=== PATIENT | male | born 1955 | race Caucasian/White ===

== ENCOUNTER 2017-02-05 04:46 | Inpatient (IN) | payer MEDICARE ==
[~2017-02-05] VITALS: Ht 180.3 cm; Wt 54.8 kg
[2017-02-05 04:59] VITALS: BP 129/63; PULSE 66; RESP 16; TEMP 98.2; O2SAT 98
[2017-02-05] MEDS ORDERED: cholesterol (05:12)
[2017-02-05] MEDS ORDERED: ISOS60TA PO (05:12)
[2017-02-05] MEDS ORDERED: PLAV75TA29 PO (05:12)
[2017-02-05] MEDS ORDERED: ALPR1TAB3 PO (05:12)
[2017-02-05] MEDS ORDERED: OXYC1TAB36 PO (05:12)
[2017-02-05] MEDS ORDERED: ASPI325T PO (05:12)
[2017-02-05] MEDS ORDERED: METO50TA PO (05:12)
[2017-02-05 05:24] VITALS: O2SAT 98
--- NOTE | 2017-02-05 05:26 | PD ---
HPI Chief Complaint: Psychiatric Symptoms Time Seen by Provider: 05:13 Travel History International Travel<30 days: No Contact w/Intl Traveler<30days: No Traveled to known affect area: No History of Present Illness HPI Patient is a 61-year-old male who is brought to the emergency room by [facility] law enforcement officers under [place] act. As per police officers, patient suffers from anxiety and was found in his residence having hallucinations stating that there were several people in his sister's bedroom. Please officers made contact with him and he was in the hallway holding a sledgehammer. Patient had scripts filled on January 15, 2017 with 120 tablets of Xanax and 120 tabs of oxycodone which both bottles are empty. Patient reports that he was at her sister's home, reports that he heard voices from his systems room, which that he did become concerned and tried to investigate this. Patient reports that before he knew it, officers were at the home. Patient reports that he is not suicidal or homicidal, patient reports that the people at the home stole his medications. Patient Adamantly denies taking any of his medications and overdose. Patient also denies holding a sledgehammer [facility] Past Medical History Anxiety: Yes Cardiac Catheterization: Yes Diminished Hearing: No Myocardial Infarction: Yes Tetanus Vaccination: > 5 Years Influenza Vaccination: Yes Past Surgical History Coronary Stent: Yes Other Surgery: Yes (SPINAL STIMULATOR: REMOVAL ) Social History Alcohol Use: No Tobacco Use: Yes (8-10 ) Substance Use: No Allergies-Medications (Allergen,Severity, Reaction): Coded Allergies: No Known Allergies (Unverified , 02/05/17) Reported Meds & Prescriptions Reported Meds & Active Scripts Active Reported Metoprolol Tartrate 50 Mg Tab 50 Mg PO DAILY [cholesterol ] Unknown Strength Unknown Dose Aspirin 325 Mg Tab 325 Mg PO DAILY Isosorbide Mononitrate ER (Isosorbide Mononitrate) 60 Mg Tab 60 Mg PO DAILY Oxycodone-Acetaminophen 10-325 mg Tab 1 Tab PO Q6H PRN Alprazolam 1 Mg Tab 1 Mg PO Q4-6H PRN Plavix (Clopidogrel Bisulfate) Unknown Strength Tab Unknown Dose PO DAILY Review of Systems General / Constitutional: No: Fever Eyes: No: Visual changes HENT: No: Headaches Cardiovascular: No: Chest Pain or Discomfort Respiratory: No: Shortness of Breath Gastrointestinal: No: Abdominal Pain Genitourinary: No: Dysuria Musculoskeletal: No: Pain Skin: No Rash Neurologic: No: Weakness Psychiatric: No: Depression Endocrine: No: Polydipsia Hematologic/Lymphatic: No: Easy Bruising Physical Exam Narrative GENERAL: No acute distress, nontoxic SKIN: Focused skin assessment warm/dry. HEAD: Atraumatic. Normocephalic. EYES: Pupils equal and round. No scleral icterus. No injection or drainage. ENT: No nasal bleeding or discharge. Mucous membranes pink and moist. NECK: Trachea midline. No JVD. CARDIOVASCULAR: Regular rate and rhythm. No murmur appreciated. RESPIRATORY: No accessory muscle use. Clear to auscultation. Breath sounds equal bilaterally. GASTROINTESTINAL: Abdomen soft, non-tender, nondistended. Hepatic and splenic margins not palpable. MUSCULOSKELETAL: No obvious deformities. No clubbing. No cyanosis. No edema. NEUROLOGICAL: Awake and alert. No obvious cranial nerve deficits. Motor grossly within normal limits. Normal speech. PSYCHIATRIC: Appropriate mood and affect; insight and judgment normal. Data Data Last Documented VS Vital Signs Date Time Temp Pulse Resp B/P Pulse Ox O2 Delivery O2 Flow Rate FiO2 02/05/17 12:34 98.3 52 16 119/55 99 Room Air Orders Complete Blood Count With Diff (02/05/17 05:05) Comprehensive Metabolic Panel (02/05/17 05:05) Psych Screen (02/05/17 05:05) Drug Screen, Random Urine (02/05/17 05:05) Alcohol (Ethanol) (02/05/17 05:05) Salicylates (Aspirin) (02/05/17 05:05) Tylenol (Acetaminophen) (02/05/17 05:05) Ecg Monitoring (02/05/17 05:19) Oximetry (02/05/17 05:19) Salicylates (Aspirin) (02/05/17 08:20) Tylenol (Acetaminophen) (02/05/17 08:20) Naproxen (Naprosyn) (02/05/17 07:45) Diet Regular Basic (02/05/17 Dinner) Labs Laboratory Tests Test 02/05/17 02/05/17 05:20 08:20 White Blood Count 11.4 TH/MM3 Red Blood Count 4.15 MIL/MM3 Hemoglobin 12.6 GM/DL Hematocrit 37.4 % Mean Corpuscular Volume 90.0 FL Mean Corpuscular Hemoglobin 30.4 PG Mean Corpuscular Hemoglobin 33.7 % Concent Red Cell Distribution Width 13.2 % Platelet Count 255 TH/MM3 Mean Platelet Volume 8.3 FL Neutrophils (%) (Auto) 64.6 % Lymphocytes (%) (Auto) 25.0 % Monocytes (%) (Auto) 9.5 % Eosinophils (%) (Auto) 0.3 % Basophils (%) (Auto) 0.6 % Neutrophils # (Auto) 7.4 TH/MM3 Lymphocytes # (Auto) 2.9 TH/MM3 Monocytes # (Auto) 1.1 TH/MM3 Eosinophils # (Auto) 0.0 TH/MM3 Basophils # (Auto) 0.1 TH/MM3 CBC Comment DIFF FINAL Differential Comment Sodium Level 144 MEQ/L Potassium Level 3.4 MEQ/L Chloride Level 108 MEQ/L Carbon Dioxide Level 25.9 MEQ/L Anion Gap 10 MEQ/L Blood Urea Nitrogen 23 MG/DL Creatinine 0.82 MG/DL Estimat Glomerular Filtration 95 ML/MIN Rate Random Glucose 97 MG/DL Calcium Level 9.4 MG/DL Total Bilirubin 0.6 MG/DL Aspartate Amino Transf 21 U/L (AST/SGOT) Alanine Aminotransferase 31 U/L (ALT/SGPT) Alkaline Phosphatase 67 U/L Total Protein 7.3 GM/DL Albumin 4.2 GM/DL Salicylates Level 5.0 MG/DL 4.5 MG/DL Acetaminophen Level LESS THAN 2.0 LESS THAN 2.0 MCG/ML MCG/ML Ethyl Alcohol Level LESS THAN 3 MG/DL MDM Medical Decision Making Medical Screen Exam Complete: Yes Emergency Medical Condition: Yes Interpretation(s) Vital Signs Date Time Temp Pulse Resp B/P Pulse Ox O2 Delivery O2 Flow Rate FiO2 02/05/17 04:59 98.2 66 16 129/63 98 Differential Diagnosis Possible drug ingestion, electrolyte abnormality, possible drug overdose Narrative Course Patient is a 61-year-old male who presents to emergency room under [place] by police officers. As per police officers, patient was having hallucinations and had a sledgehammer in his hand. Patient was also found with 2 missing bottles of Xanax as well as oxycodone which patient adamantly denies ingesting. Patient was placed on a media monitor as well as a continuous pulse oximeter upon arrival to the emergency room. Labs including tox screens, acetaminophen and aspirin level ordered. Plan to monitor patient. Once medically cleared, will have patient seen by psychiatric screeners. patient signed out to oncoming physician at change of shift Yasmin Moore DO February 05, 2017 05:26
[2017-02-05 05:47] LABS: AUTOMATED NEUTROPHIL # 7.4 TH/MM3 (1.8-7.7); BASOPHIL # 0.1 TH/MM3 (0-0.2); BASOPHIL % 0.6 % (0.0-2.0); EOSINOPHIL % 0.3 % (0.0-4.0); HEMATOCRIT 37.4 % (39.0-51.0); HEMO FLAGS DIFF FINAL; LYMPHOCYTE # 2.9 TH/MM3 (1.0-4.8); MEAN CORPUSCULAR HEMOGLOBIN 30.4 PG (27.0-34.0); MEAN CORPUSCULAR HGB CONC 33.7 % (32.0-36.0); MONO % 9.5 % (0.0-8.0); NEUT % 64.6 % (16.0-70.0); PLATELET COUNT 255 TH/MM3 (150-450); RED BLOOD COUNT 4.15 MIL/MM3 (4.50-5.90); RED CELL DISTRIBUTION WIDTH 13.2 % (11.6-17.2); WHITE BLOOD COUNT 11.4 TH/MM3 (4.0-11.0)
[2017-02-05 05:48] LABS: ACETAMINOPHEN LESS THAN 2.0 MCG/ML (10.0-30.0); ALT (GPT) 31 U/L (12-78); ANION GAP 10 MEQ/L (5-15); AST (GOT) 21 U/L (15-37); BICARBONATE 25.9 MEQ/L (21.0-32.0); BLOOD UREA NITROGEN 23 MG/DL (7-18); CHLORIDE 108 MEQ/L (98-107); GLOMERULAR FILTRATION RATE 95 ML/MIN (>89); POTASSIUM 3.4 MEQ/L (3.5-5.1); SODIUM (NA) 144 MEQ/L (136-145)
[2017-02-05 05:50] LABS: ALKALINE PHOSPHATASE 67 U/L (45-117); TOTAL BILIRUBIN ADULT 0.6 MG/DL (0.2-1.0)
[2017-02-05 07:30] VITALS: BP 109/62; PULSE 57; RESP 18; O2SAT 98
[2017-02-05] MEDS ORDERED: NAPROXEN 500 MG TAB PO ONE (07:45)
[2017-02-05 10:30] VITALS: BP 104/58; PULSE 55; RESP 18; O2SAT 98
[2017-02-05 12:34] VITALS: BP 119/55; PULSE 52; RESP 16; TEMP 98.3; O2SAT 99
[2017-02-05 19:03] LABS: AMPHETAMINE, URINE NEG (NEG); BARBITURATES, URINE NEG (NEG); COCAINE, URINE NEG (NEG)
[2017-02-05 22:09] VITALS: BP 119/60; PULSE 60; RESP 18; O2SAT 98
[2017-02-06 02:17] VITALS: BP 147/68; PULSE 63; RESP 18; O2SAT 98
[2017-02-06 06:12] VITALS: BP 130/54; PULSE 63; RESP 16; TEMP 97.1; O2SAT 98
[2017-02-06] MEDS ORDERED: LORazepam 2 MG/ML VIAL IM ONE (09:00)
--- NOTE | 2017-02-06 09:00 | PD ---
Physical Exam Date Seen by Provider: February 06, 2017 Time Seen by Provider: 08:50 Narrative While in J pod examining another patient, I witnessed this patient trying to punch staff in an aggressive manner. Patient became very violent and required multiple staff members to restrain him. He is very anxious and thinks he is in mcc. He is a harm to himself and others. Data Data Last Documented VS Vital Signs Date Time Temp Pulse Resp B/P Pulse Ox O2 Delivery O2 Flow Rate FiO2 02/06/17 12:30 80 20 121/66 Room Air 02/06/17 09:07 98.6 100 Orders Complete Blood Count With Diff (02/05/17 05:05) Comprehensive Metabolic Panel (02/05/17 05:05) Psych Screen (02/05/17 05:05) Drug Screen, Random Urine (02/05/17 05:05) Alcohol (Ethanol) (02/05/17 05:05) Salicylates (Aspirin) (02/05/17 05:05) Tylenol (Acetaminophen) (02/05/17 05:05) Ecg Monitoring (02/05/17 05:19) Oximetry (02/05/17 05:19) Salicylates (Aspirin) (02/05/17 08:20) Tylenol (Acetaminophen) (02/05/17 08:20) Naproxen (Naprosyn) (02/05/17 07:45) Diet Regular Basic (02/05/17 Dinner) Diet Regular Basic (02/06/17 Breakfast) Restraints Violent (02/06/17 08:50) Lorazepam Inj (Ativan Inj) (02/06/17 09:00) Diet Regular Basic (02/06/17 Lunch) Haloperidol Inj (Haldol Inj) (02/06/17 11:00) Lorazepam (Ativan) (02/06/17 11:30) Lorazepam Inj (Ativan Inj) (02/06/17 11:30) Lorazepam (Ativan) (02/06/17 11:30) Lorazepam Inj (Ativan Inj) (02/06/17 11:30) Lorazepam Inj (Ativan Inj) (02/06/17 11:30) Lorazepam Inj (Ativan Inj) (02/06/17 11:30) Haloperidol Inj (Haldol Inj) (02/06/17 11:30) Flumazenil Inj (Romazicon Inj) (02/06/17 11:30) Ct Brain W/O Iv Contrast(Rout) (02/06/17 11:34) Admit Order (Ed Use Only) (02/06/17 12:47) Labs Laboratory Tests Test 02/05/17 02/05/17 02/05/17 05:20 08:20 18:30 White Blood Count 11.4 TH/MM3 Red Blood Count 4.15 MIL/MM3 Hemoglobin 12.6 GM/DL Hematocrit 37.4 % Mean Corpuscular Volume 90.0 FL Mean Corpuscular Hemoglobin 30.4 PG Mean Corpuscular Hemoglobin 33.7 % Concent Red Cell Distribution Width 13.2 % Platelet Count 255 TH/MM3 Mean Platelet Volume 8.3 FL Neutrophils (%) (Auto) 64.6 % Lymphocytes (%) (Auto) 25.0 % Monocytes (%) (Auto) 9.5 % Eosinophils (%) (Auto) 0.3 % Basophils (%) (Auto) 0.6 % Neutrophils # (Auto) 7.4 TH/MM3 Lymphocytes # (Auto) 2.9 TH/MM3 Monocytes # (Auto) 1.1 TH/MM3 Eosinophils # (Auto) 0.0 TH/MM3 Basophils # (Auto) 0.1 TH/MM3 CBC Comment DIFF FINAL Differential Comment Sodium Level 144 MEQ/L Potassium Level 3.4 MEQ/L Chloride Level 108 MEQ/L Carbon Dioxide Level 25.9 MEQ/L Anion Gap 10 MEQ/L Blood Urea Nitrogen 23 MG/DL Creatinine 0.82 MG/DL Estimat Glomerular Filtration 95 ML/MIN Rate Random Glucose 97 MG/DL Calcium Level 9.4 MG/DL Total Bilirubin 0.6 MG/DL Aspartate Amino Transf 21 U/L (AST/SGOT) Alanine Aminotransferase 31 U/L (ALT/SGPT) Alkaline Phosphatase 67 U/L Total Protein 7.3 GM/DL Albumin 4.2 GM/DL Salicylates Level 5.0 MG/DL 4.5 MG/DL Acetaminophen Level LESS THAN 2.0 LESS THAN 2.0 MCG/ML MCG/ML Ethyl Alcohol Level LESS THAN 3 MG/DL Urine Opiates Screen NEG Urine Barbiturates Screen NEG Urine Amphetamines Screen NEG Urine Benzodiazepines Screen NEG Urine Cocaine Screen NEG Urine Cannabinoids Screen NEG MDM Medical Record Reviewed: Yes Supervised Visit with AZALIA: No Differential Diagnosis Schizophrenia, bipolar disorder, aggression and agitation Narrative Course This is a 61-year-old male who I witness trying to inflict harm upon staff members in the J pod. I have ordered restraints for this patient. He seems to think he is in mcc. I've also provided Ativan as he is very anxious and will not remain calm or still. Baylee Drake February 06, 2017 09:00
[2017-02-06 09:07] VITALS: BP 127/60; PULSE 63; RESP 18; TEMP 98.6; O2SAT 100
[2017-02-06] MEDS ORDERED: BUPR150T12 PO (10:58)
[2017-02-06] MEDS ORDERED: HALOPERIDOL LACTATE 5 MG/ML AMP IM ONE (11:00)
[2017-02-06] MEDS ORDERED: LISI-519 PO (11:00)
[2017-02-06] MEDS ORDERED: ATOR40TA16 PO (11:00)
[2017-02-06] MEDS ORDERED: METO50TA11 PO (11:02)
--- NOTE | 2017-02-06 11:04 | PD ---
History of Present Illness Chief Complaint: Psychiatric Symptoms Time Seen by Provider: 10:45 Travel History International Travel<30 Days: No Contact w/Intl Traveler<30days: No Known affected area: No Legal Status Legal Status: [place] Signed By: Keri Moses [place] Act Comment: BA signed by: DOLLY Riley Badge#[id number], Case# [id number] History of Present Illness: History of Present Illness HPI Patient is a 61-year-old male who is brought to the emergency room by [place] law enforcement officers under [place] act. As per police officers, patient suffers from anxiety and was found in his residence having hallucinations stating that there were several people in his sister's bedroom. Please officers made contact with him and he was in the hallway holding a sledgehammer. Patient had scripts filled on January 15, 2017 with 120 tablets of Xanax and 120 tabs of oxycodone which both bottles are empty. Patient reports that he was at her sister's home, reports that he heard voices from his systems room, which that he did become concerned and tried to investigate this. Patient reports that before he knew it, officers were at the home. Patient reports that he is not suicidal or homicidal, patient reports that the people at the home stole his medications. Patient Adamantly denies taking any of his medications and overdose. Patient also denies holding a sledgehammer Patient seen. Record is reviewed.Current toxicology is negative for any benzos or opiates which are prescribed to him. Patient is in arm restraints. Awake, alert. He is unable to focus . His speech is illogical. Restless. He appears to be responding to internal stimuli. Is talking about having his truck stolen Telephone call to contact Mk Banda at [phone]. Wrong number. Telephone call to the physician on medication bottles provided by his pharmacy [facility] [phone]. MD will call back. I later received a call from Dr. Perea who reports that to his knowledge this patient has no previous psychiatric condition. He last saw him 3 weeks ago. He has never misused his controlled medications and he has never been aggressive or agitated. PFSH Past Medical History Anxiety: Yes Cardiac Catheterization: Yes Diminished Hearing: No Myocardial Infarction: Yes Tetanus Vaccination: > 5 Years Influenza Vaccination: Yes Past Surgical History Coronary Stent: Yes Other Surgery: Yes (SPINAL STIMULATOR: REMOVAL ) Psychiatric History Psychiatric History History of Inpatient Treatment: Yes Social History Hx Alcohol Use: No Hx Tobacco Use: Yes (8-10 ) Hx Substance Use: No Hx of Substance Use Treatment: Yes Allergies-Medications (Allergen,Severity, Reaction): Coded Allergies: No Known Allergies (Unverified , 02/06/17) Per [facility] [phone]. Reportedly current meds are prescribed by Dr.Srinivasan Milton MD - [phone]. Reported Meds & Prescriptions Reported Meds & Active Scripts Active Reported Metoprolol Tartrate 50 Mg Tab 50 Mg PO DAILY [cholesterol ] Unknown Strength Unknown Dose Aspirin 325 Mg Tab 325 Mg PO DAILY Isosorbide Mononitrate ER (Isosorbide Mononitrate) 60 Mg Tab 60 Mg PO DAILY Oxycodone-Acetaminophen 10-325 mg Tab 1 Tab PO Q6H PRN Alprazolam 1 Mg Tab 1 Mg PO Q4-6H PRN Plavix (Clopidogrel Bisulfate) Unknown Strength Tab Unknown Dose PO DAILY Review of Systems ROS Limitations: Clinical Condition Exam Alert: Yes [place]ow: Person Mood: Other (restless) Affect: Other (labile) Speech: Clear, Illogical Eye Contact: Indirect Memory Intact: Comment (not tested) Hallucinations: Auditory (responding to internal stimuli) Delusions: Yes Delusion Type: Paranoid Suicidal: Ideation (unable to assess) Insight/Judgement poor. poor MDM Medical Decision Making Medical Record Reviewed: Yes Assessment/Plan 61 year old male with no previous psychiatric history who is under a BA. Patient at this time is confused, disorganized, appears to be responding to internal stimuli. Based on abrupt change in his presentation case is discussed with Dr. Mina Pete who recommends that patient be reevaluated by medical for possible delirium, benzo withdrawal psychosis or other metabolic etiology. Orders Diet Regular Basic (02/05/17 Dinner) Diet Regular Basic (02/06/17 Breakfast) Restraints Violent (02/06/17 08:50) Lorazepam Inj (Ativan Inj) (02/06/17 09:00) Diet Regular Basic (02/06/17 Lunch) Haloperidol Inj (Haldol Inj) (02/06/17 11:00) Results Vital Signs Date Time Temp Pulse Resp B/P Pulse Ox O2 Delivery O2 Flow Rate FiO2 02/06/17 10:46 68 20 02/06/17 09:07 98.6 63 18 127/60 100 Room Air 02/06/17 06:12 97.1 63 16 130/54 98 Room Air 02/06/17 02:17 63 18 147/68 98 Room Air 02/05/17 22:09 60 18 119/60 98 Room Air 02/05/17 12:34 98.3 52 16 119/55 99 Room Air Laboratory Tests Test 02/05/17 18:30 Urine Opiates Screen NEG Urine Barbiturates Screen NEG Urine Amphetamines Screen NEG Urine Benzodiazepines Screen NEG Urine Cocaine Screen NEG Urine Cannabinoids Screen NEG Diagnosis Primary Impression: Delirium [place] February 06, 2017 11:03
[2017-02-06] MEDS ORDERED: LORazepam 2 MG/ML VIAL IV PUSH PRN ×3 (11:30)
[2017-02-06] MEDS ORDERED: FLUMAZENIL 0.5 MG/5 ML VIAL IV PUSH PRN (11:30)
[2017-02-06 12:30] VITALS: BP 121/66; PULSE 80; RESP 20
--- NOTE | 2017-02-06 12:34 | RADRPT ---
EXAM DATE/TIME: 02/06/2017 12:16 [place] COMPARISON: No previous studies available for comparison. INDICATIONS : Altered mental status RADIATION DOSE: 32.39 CTDIvol (mGy) MEDICAL HISTORY : Cardiovascular disease. SURGICAL HISTORY : Coronary artery stent. ENCOUNTER: Initial ACUITY: 1 day PAIN SCALE: 0/10 LOCATION: cranial TECHNIQUE: Multiple contiguous axial images were obtained of the head. Using automated exposure control and adj ustment of the mA and/or kV according to patient size, radiation dose was kept as low as reasonably a chievable to obtain optimal diagnostic quality images. FINDINGS: CEREBRUM: The ventricles are normal for age. No evidence of midline shift, mass lesion, hemorrhage or acute in farction. No extra-axial fluid collections are seen. POSTERIOR FOSSA: The cerebellum and brainstem are intact. The 4th ventricle is midline. The cerebellopontine angle i s unremarkable. EXTRACRANIAL: The visualized portion of the orbits is intact. SKULL: The calvaria is intact. No evidence of skull fracture. CONCLUSION: Normal examination. Dominik Coleman MD on February 06, 2017 at 12:32 Board Certified Radiologist. This report was verified electronically.
--- NOTE | 2017-02-06 12:51 | PD ---
Physical Exam Date Seen by Provider: February 06, 2017 Time Seen by Provider: 12:00 Narrative Patient's case was discussed with Dr. Pete who feels that the patient may be delirious and wanted to get him evaluated further medically. I have evaluated the patient and on exam, he is definitely hallucinating but has no focal neurological deficits and has no signs of alterations in mental status or lethargy. Initial lab work done did not show any significant metabolic issues. He is not intoxicated. CAT scan is negative. GENERAL: Well-nourished, well-developed patient. Patient is actively hallucinating. But awake and alert. Directable. SKIN: Focused skin assessment warm/dry. HEAD: Normocephalic. EYES: No scleral icterus. No injection or drainage. NECK: Supple, trachea midline. No JVD or lymphadenopathy. CARDIOVASCULAR: Regular rate and rhythm without murmurs, gallops, or rubs. RESPIRATORY: Breath sounds equal bilaterally. No accessory muscle use. GASTROINTESTINAL: Abdomen soft, non-tender, nondistended. MUSCULOSKELETAL: No cyanosis, or edema. BACK: Nontender without obvious deformity. No CVA tenderness. At this point, my plan would be to admit him to medical psychiatry unit for further evaluation. Data Data Last Documented VS Vital Signs Date Time Temp Pulse Resp B/P Pulse Ox O2 Delivery O2 Flow Rate FiO2 02/06/17 11:55 20 02/06/17 10:46 68 02/06/17 09:07 98.6 127/60 100 Room Air Orders Complete Blood Count With Diff (02/05/17 05:05) Comprehensive Metabolic Panel (02/05/17 05:05) Psych Screen (02/05/17 05:05) Drug Screen, Random Urine (02/05/17 05:05) Alcohol (Ethanol) (02/05/17 05:05) Salicylates (Aspirin) (02/05/17 05:05) Tylenol (Acetaminophen) (02/05/17 05:05) Ecg Monitoring (02/05/17 05:19) Oximetry (02/05/17 05:19) Salicylates (Aspirin) (02/05/17 08:20) Tylenol (Acetaminophen) (02/05/17 08:20) Naproxen (Naprosyn) (02/05/17 07:45) Diet Regular Basic (02/05/17 Dinner) Diet Regular Basic (02/06/17 Breakfast) Restraints Violent (02/06/17 08:50) Lorazepam Inj (Ativan Inj) (02/06/17 09:00) Diet Regular Basic (02/06/17 Lunch) Haloperidol Inj (Haldol Inj) (02/06/17 11:00) Lorazepam (Ativan) (02/06/17 11:30) Lorazepam Inj (Ativan Inj) (02/06/17 11:30) Lorazepam (Ativan) (02/06/17 11:30) Lorazepam Inj (Ativan Inj) (02/06/17 11:30) Lorazepam Inj (Ativan Inj) (02/06/17 11:30) Lorazepam Inj (Ativan Inj) (02/06/17 11:30) Haloperidol Inj (Haldol Inj) (02/06/17 11:30) Flumazenil Inj (Romazicon Inj) (02/06/17 11:30) Ct Brain W/O Iv Contrast(Rout) (02/06/17 11:34) Labs Laboratory Tests Test 02/05/17 02/05/17 02/05/17 05:20 08:20 18:30 White Blood Count 11.4 TH/MM3 Red Blood Count 4.15 MIL/MM3 Hemoglobin 12.6 GM/DL Hematocrit 37.4 % Mean Corpuscular Volume 90.0 FL Mean Corpuscular Hemoglobin 30.4 PG Mean Corpuscular Hemoglobin 33.7 % Concent Red Cell Distribution Width 13.2 % Platelet Count 255 TH/MM3 Mean Platelet Volume 8.3 FL Neutrophils (%) (Auto) 64.6 % Lymphocytes (%) (Auto) 25.0 % Monocytes (%) (Auto) 9.5 % Eosinophils (%) (Auto) 0.3 % Basophils (%) (Auto) 0.6 % Neutrophils # (Auto) 7.4 TH/MM3 Lymphocytes # (Auto) 2.9 TH/MM3 Monocytes # (Auto) 1.1 TH/MM3 Eosinophils # (Auto) 0.0 TH/MM3 Basophils # (Auto) 0.1 TH/MM3 CBC Comment DIFF FINAL Differential Comment Sodium Level 144 MEQ/L Potassium Level 3.4 MEQ/L Chloride Level 108 MEQ/L Carbon Dioxide Level 25.9 MEQ/L Anion Gap 10 MEQ/L Blood Urea Nitrogen 23 MG/DL Creatinine 0.82 MG/DL Estimat Glomerular Filtration 95 ML/MIN Rate Random Glucose 97 MG/DL Calcium Level 9.4 MG/DL Total Bilirubin 0.6 MG/DL Aspartate Amino Transf 21 U/L (AST/SGOT) Alanine Aminotransferase 31 U/L (ALT/SGPT) Alkaline Phosphatase 67 U/L Total Protein 7.3 GM/DL Albumin 4.2 GM/DL Salicylates Level 5.0 MG/DL 4.5 MG/DL Acetaminophen Level LESS THAN 2.0 LESS THAN 2.0 MCG/ML MCG/ML Ethyl Alcohol Level LESS THAN 3 MG/DL Urine Opiates Screen NEG Urine Barbiturates Screen NEG Urine Amphetamines Screen NEG Urine Benzodiazepines Screen NEG Urine Cocaine Screen NEG Urine Cannabinoids Screen NEG MDM Medical Record Reviewed: Yes Supervised Visit with AZALIA: No Diagnosis Primary Impression: Hallucinations Admitting Information Admitting Physician Requests: Admit Arlet Perez MD February 06, 2017 12:51
[2017-02-06 15:30] VITALS: BP 125/68; PULSE 79; RESP 20; O2SAT 97
[2017-02-06 18:22] VITALS: BP 134/62; PULSE 84; RESP 16; TEMP 97.9; O2SAT 97
[2017-02-07 06:27] VITALS: BP 126/88; PULSE 88; RESP 18; TEMP 97.1; O2SAT 97
[2017-02-07] MEDS ORDERED: LORazepam 2 MG TAB PO STA (08:29)
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
[2017-02-07] MEDS ORDERED: HALOPERIDOL LACTATE 5 MG/ML AMP IM STA (09:32)
[2017-02-07] MEDS: risperiDONE 1 MG TAB PO SCH ×2 (10:41→20:53)
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
[2017-02-07 15:40] VITALS: BP 138/65; PULSE 72; RESP 18; O2SAT 96
[2017-02-07 16:33] LABS: BLOOD, URINE NEG (NEG); GLUCOSE,URINE NEG (NEG); KETONE, URINE 10 mg/dL (NEG); NITRITE,URINE NEG (NEG); URINE COLOR LIGHT-YELLOW (YELLW/STRAW)
[2017-02-07 16:34] LABS: COMMENT (UR) CULT NOT INDICATED; CULTURE IF INDICATED CULT NOT INDICATED
--- NOTE | 2017-02-07 17:05 | EC ---
Study Study Date:02/07/2017 STUDY CONCLUSIONS SUMMARY - Left ventricle: The cavity size was mildly dilated. Wall thickness was normal. Systolic function was at the lower limits of normal. The estimated ejection fraction was in the range of 50% to 55%. Although no diagnostic regional wall motion abnormality was identified, this possibility cannot be completely excluded on the basis of this study. - Mitral valve: Mild regurgitation. - Tricuspid valve: Mild regurgitation. - Pulmonary arteries: Systolic pressure was mildly increased. PA peak pressure: 41mm Hg (S). If LV function is below 40, please consider prescribing an ACEI or ARB or document rationale for non-use. PROCEDURE DATA STUDY STATUS: Elective. Procedure: Transthoracic echocardiography. Image quality was good. Scanning was performed from the parasternal, apical, and subcostal acoustic windows. Study completion: The patient tolerated the procedure well. Transthoracic echocardiography. M-mode, complete 2D, complete spectral Doppler, and color Doppler. Patient status: Inpatient. CARDIAC ANATOMY LEFT VENTRICLE: The cavity size was mildly dilated. Wall thickness was normal. Systolic function was at the lower limits of normal. The estimated ejection fraction was in the range of 50% to 55%. Although no diagnostic regional wall motion abnormality was identified, this possibility cannot be completely excluded on the basis of this study. AORTIC VALVE: Trileaflet; normal thickness leaflets. Doppler: Transvalvular velocity was within the normal range. There was no stenosis. No regurgitation. AORTA: Aortic root: The aortic root was normal in size. MITRAL VALVE: Structurally normal valve. Doppler: Transvalvular velocity was within the normal range. There was no evidence for stenosis. Mild regurgitation. Peak gradient: 3mm Hg (D). LEFT ATRIUM: The atrium was normal in size. RIGHT VENTRICLE: The cavity size was normal. Wall thickness was normal. PULMONIC VALVE: Doppler: Transvalvular velocity was within the normal range. There was no evidence for stenosis. No regurgitation. TRICUSPID VALVE: Structurally normal valve. Doppler: Transvalvular velocity was within the normal range. Mild regurgitation. PULMONARY ARTERY: Systolic pressure was mildly increased. RIGHT ATRIUM: The atrium was normal in size. PERICARDIUM: There was no pericardial effusion. SYSTEMIC VEINS: Inferior vena cava: The vessel was normal in size. BASIC MEASUREMENTS ADULT Normal Left ventricle LV internal dimension, ED, chordal level, 43.5 mm 43-52 PLAX LV internal dimension, ES, chordal level, 35 mm 23-38 PLAX Fractional shortening, chordal level, PLAX *20 % >29 LV posterior wall thickness, ED 8.03 mm IVS/LVPW ratio, ED *1.59 <1.3 Ventricular septum Septal thickness, ED 12.8 mm Aortic valve Leaflet separation 18 mm 15-26 Right ventricle RV internal dimension, ED, PLAX 20.8 mm 19-38 BASIC MEASUREMENTS ADULT Normal Aortic valve Leaflet separation 18 mm 15-26 Aorta Root diameter, ED 35 mm 20-37 Left atrium Anterior-posterior dimension, ES 35 mm 19-40 LA/aortic root ratio 1 DOPPLER MEASUREMENTS ADULT Normal Main pulmonary artery Pressure, S *41 mm Hg =30 Mitral valve Peak E-wave velocity 91.8 cm/s Peak A-wave velocity 93.3 cm/s Peak gradient, D 3 mm Hg Peak E/A ratio 1 Tricuspid valve Regurgitant peak velocity 277 cm/s Peak RV-RA gradient, S 31 mm Hg Maximal regurgitant velocity 277 cm/s Systemic veins Estimated CVP 10 mm Hg Right ventricle RV pressure, S *41 mm Hg <30 LEGEND: Mean values are shown as u=mean value. Asterisk (*) rueda values outside specified normal range. Prepared and signed by Horacio Lock [id number]
[2017-02-07 17:29] VITALS: BP 115/61; PULSE 78; RESP 16; TEMP 97.6; O2SAT 100
[2017-02-08 06:00] VITALS: BP 151/78; PULSE 80; RESP 20; TEMP 97.4; O2SAT 100
[2017-02-08] MEDS: risperiDONE 1 MG TAB PO SCH ×2 (07:47→21:33)
[2017-02-08] MEDS: HALOPERIDOL LACTATE 5 MG/ML AMP IM PRN ×2 (07:47→09:34)
[2017-02-08] MEDS: LORazepam 2 MG/ML VIAL IV PUSH PRN ×2 (07:49→09:35)
--- NOTE | 2017-02-08 12:06 | PD.CONS ---
Provisional Diagnosis Admission Date February 06, 2017 at 12:49 [place] I. 1. Unspecified psychosis [place] II. Deferred [place] V. GAF is 20 presently History of Present Illness Service Psychiatry Consult Requested By Dr. Vázquez Reason for Consult Second opinion for involuntary psychiatric hospitalization Primary Care Physician Non-Staff HPI From Dr. Vázquez's H&P: The patient is a 61 years old man, domicile with his mother in [place], unemployed, supported by SSI, divorce, with psychiatric history of anxiety, no psychiatric hospitalizations, no previous suicidal attempts, he is on Xanax 1 mg 4 times per day, prescribed by PCP, he has medical history of CHF, hypertension, MIs, lower back pain. Patient was brought to the ER [place] [facility] As per police officers, patient suffers from anxiety and was found in his residence having hallucinations stating that there were several people in his sister's bedroom. Please officers made contact with him and he was in the hallway holding a sledgehammer. Patient had scripts filled on January 15, 2017 with 120 tablets of Xanax and 120 tabs of oxycodone which both bottles are empty.Patient reports that he was at her sister's home, reports that he heard voices from his systems room, which that he did become concerned and tried to investigate this. On psychiatric evaluation today patient is found very restless in his room, looking around, very paranoid, kind of disorganized and perseverant in the idea that he has to leave the hospital because his cats are in danger. Patient says that there are several dogs around his house trying to mess with his cats and he needs to call the police immediately. Patient also says that "all these people here also no that they're dogs around here, I just saw them in the door and any to call the police ". Patient was verbally be escalated, he continued to be very agitated and pacing in the room, looking around, trying to leave. As per nurses patient has been paranoid, refusing to eat his breakfast, very intrusive, becoming very often to the front of the nurses station to ask for the telephone number of the police department with different complaints. The patient denies depressive symptoms, he reports increasing anxiety, he denies perceptual disturbances. He reports daily use of Xanax, 4 mg per day, but he declares that sometimes he can go up to 10 pills per day. He denies a recent suicidal attempt. Patient denies the use of illegal drugs, and he denies the use of alcohol. Patient also takes Percocet for his lower back pain, he also declares that he sometimes over take this medication. During this evaluation no tremors, sweating or other signs of autonomic instability are noted. His vital signs are stable. However, benzodiazepines withdrawal is possible in this case. On my examination today: Patient seen and examined. Chart reviewed. Case discussed with nurse on the medical psychiatric unit. Per nursing staff, the patient became increasingly agitated this morning, raising his hand as if to hit staff and also trying to dismantle his bed and so he was placed into locked seclusion at Dr. Vázquez's order. At the time of my evaluation the patient remains in locked seclusion with a sitter at the door. Patient presents as behaviorally and cognitively disorganized. He is crouched in the corner of the seclusion room, laughing and talking to himself. He has emptied a coffee cream packet on the floor and is playing with the powder. His speech is almost entirely word salad. He is unable to answer any of my questions as a consequence of his disorganization, except he does say when asked that he is in [place]. Otherwise, patient' s current mental status considerably limits the history. He is for the same reason unable to provide me with any past psychiatric, family, chemical dependency or social history. Review of Systems ROS Limitations: Psychotic, Poor Historian Other Thought disorganization prevents obtaining ROS. Past Family Social History Coded Allergies: No Known Allergies (Unverified , 02/06/17) Per [facility] [phone]. Reportedly current meds are prescribed by Dr.Srinivasan Milton MD - [phone]. Past Medical History See EMR Reported Medications Metoprolol Succinate ER 24 HR 50 Mg Tab50 Mg PO DAILY #30 TAB Ref 0 02/06/17 Atorvastatin 40 Mg Tab40 Mg PO DAILY #30 TAB Ref 0 02/06/17 Lisinopril 5 Mg Tab5 Mg PO DAILY #30 TAB Ref 0 02/06/17 Bupropion ER 12 HR (Smoking Deterrent) (Bupropion Sr 12 HR)150 Mg [id number] Mg PO DAILY Take 1 tablet daily x 3 days then twice daily thereafter. 02/06/17 Aspirin 325 Mg [id number] Mg PO DAILY #30 TAB Ref 0 02/05/17 Isosorbide Mononitrate ER 60 Mg Tab60 Mg PO DAILY #30 TAB Ref 0 02/05/17 Oxycodone-Acetaminophen 10-325 mg Tab1 Tab PO Q6H PRN (PAIN) Ref 0 02/05/17 Alprazolam 1 Mg Tab1 Mg PO QID PRN (ANXIETY) Ref 0 02/05/17 Discontinued Reported Medications Metoprolol Tartrate 50 Mg Tab50 Mg PO DAILY #30 TAB Ref 0 02/05/17 [cholesterol ] Unknown Strength No Conflict CheckUnknown Dose 02/05/17 Clopidogrel (Plavix)Unknown Strength TabUnknown Dose PO DAILY #30 TAB Ref 0 02/05/17 Current Medications Medications (Trade) Dose Ordered Sig/Angelito Route Start Time Stop Time Status Last Admin (Ativan) 1 mg Q4H PRN PO 02/06/17 11:30 (Ativan Inj) 1 mg Q4H PRN IV PUSH 02/06/17 11:30 02/07/17 23:19 (Ativan) 2 mg Q2H PRN PO 02/06/17 11:30 (Ativan Inj) 2 mg Q2H PRN IV PUSH 02/06/17 11:30 (Ativan Inj) 2 mg Q1H PRN IV PUSH 02/06/17 11:30 (Ativan Inj) 2 mg Q15M PRN IV PUSH 02/06/17 11:30 02/08/17 09:35 (Haldol Inj) 2 mg Q15M PRN IM 02/06/17 11:30 02/08/17 09:34 (Romazicon Inj) 0.2 mg Q1M PRN IV PUSH 02/06/17 11:30 (risperDAL) 1 mg Q12HR PO 02/07/17 09:00 02/08/17 07:47 Family History See above Social History See above Patient's Strengths (min. 2) In monitored setting. Retains some verbal fluency. Physical Exam Physical examination completed by the hospitalist. On my examination today, the patient appears to be in no acute physical distress. No signs of benzodiazepine withdrawal noted at this time, but the patient did receive 2 mg of IV Ativan a few hours before my evaluation. Laboratories and vital signs reviewed: Vital Signs Vital Signs Date Time Temp Pulse Resp B/P Pulse Ox O2 Delivery O2 Flow Rate FiO2 02/08/17 06:00 97.4 80 20 151/78 100 02/06/17 15:30 Room Air I/O 02/07/17 02/07/17 02/08/17 08:00 16:00 00:00 Intake Total 1320 ml 480 ml Balance 1320 ml 480 ml Lab Results Item Value Date Time White Blood Count 11.4 TH/MM3 H 02/05/17 0520 Hemoglobin 12.6 GM/DL L 02/05/17 0520 Platelet Count 255 TH/MM3 02/05/17 0520 Sodium Level 144 MEQ/L 02/05/17 0520 Potassium Level 3.4 MEQ/L L 02/05/17 0520 Chloride Level 108 MEQ/L H 02/05/17 0520 Carbon Dioxide Level 25.9 MEQ/L 02/05/17 0520 Blood Urea Nitrogen 23 MG/DL H 02/05/17 0520 Creatinine 0.82 MG/DL 02/05/17 0520 Estimat Glomerular Filtration Rate 95 ML/MIN 02/05/17 0520 Random Glucose 97 MG/DL 02/05/17 0520 Aspartate Amino Transf (AST/SGOT) 21 U/L 02/05/17 0520 Alanine Aminotransferase (ALT/SGPT) 31 U/L 02/05/17 0520 Alkaline Phosphatase 67 U/L 02/05/17 0520 Urine Opiates Screen NEG 02/05/17 1830 Urine Barbiturates Screen NEG 02/05/17 1830 Urine Amphetamines Screen NEG 02/05/17 1830 Urine Benzodiazepines Screen NEG 02/05/17 1830 Urine Cocaine Screen NEG 02/05/17 1830 Urine Cannabinoids Screen NEG 02/05/17 1830 Ethyl Alcohol Level LESS THAN 3 MG/DL 02/05/17 0520 Urine Ketones 10 mg/dL H 02/07/[address] 02/06/17 1134 Signed Impressions: Service Date/Time: Monday, February 06, 2017 12:16 - CONCLUSION: Normal examination. Dominik Coleman MD Mental Status Examination Patient is in [facility]. He is quite disheveled. He seems to recognize his name and knows that he is in [facility], but I am otherwise unable to pursue any mental status testing given his degree of thought disorganization. Patient is mildly psychomotor agitated and behaviorally disorganized. Speech is word salad. I am unable to assess mood or thought content. Affect is somewhat silly. Thought process is disorganized. The patient is frankly internally stimulated. He does not verbalize any suicidal or homicidal ideation but is certainly unreliable to contract for safety in his present state. Insight and judgment are currently absent. Assessment & Plan Problem List: (1) Unspecified psychosis ICD Code: F29 Assessment & Plan Given the circumstances of the patient's presentation here as well as his presentation on my examination today, I concur with Dr. Vázquez that the patient meets criteria for involuntary psychiatric hospitalization under the [place]. I have completed second opinion paperwork. Further care as per Dr. Vázquez. Thank you very much for this consultation. Signing off. Kike Larson MD February 08, 2017 12:06
--- NOTE | 2017-02-08 14:09 | HHI.PYPN ---
Subjective Remarks Patient is here for psychiatric reevaluation today, patient continues to be very disruptive and agitated in the unit, disorganized, walking inside others patient's room, very difficult to redirect verbally, talking to himself, sometimes with pressure speech. Patient seems to be restless, unable to stay still, he is oriented 3, he denies suicidal or homicidal ideation, he denies visual and auditory hallucinations, but certainly internally stimulated. As per nurses patient has needed ETOs last night and today's morning to help him to calm down. bog worker contacted his who confirms the patient doesn' t have any previous psychiatric history other than an extensive history of abusing benzodiazepines and pain medications. She says that the patient has been doing this for many years and she knows that the patient can take a complete bottle of these pills in a few days. Review of Systems Other Patient doesn't endorse any somatic complaints Objective Alert: Yes [place]: Person, Place, Date Mood: Other (restless) Affect: Other (labile) Memory Intact: Comment (not tested) Hallucinations: Auditory (responding to internal stimuli) Delusions: Yes Delusion Type: Paranoid Suicidal: Ideation (he denies) Homicidal: Ideation (he denies) Insight/Judgment Poor Labs Test 02/07/17 15:45 Urine Color LIGHT-YELLOW Urine Turbidity CLEAR Urine pH 6.0 Urine Specific [place] 1.006 Urine Protein NEG mg/dL Urine Glucose (UA) NEG mg/dL Urine Ketones 10 mg/dL Urine Occult Blood NEG Urine Nitrite NEG Urine Bilirubin NEG Urine Urobilinogen LESS THAN 2.0 MG/DL Urine Leukocyte Esterase NEG Urine RBC LESS THAN 1 /hpf Urine WBC LESS THAN 1 /hpf Microscopic Urinalysis Comment CULT NOT INDICATED Vitals/IOs Vital Signs Date Time Temp Pulse Resp B/P Pulse Ox O2 Delivery O2 Flow Rate FiO2 02/08/17 06:00 97.4 80 20 151/78 100 02/06/17 15:30 Room Air Intake and Output 02/07/17 02/07/17 02/08/17 08:00 16:00 00:00 Intake Total 1320 ml 480 ml Balance 1320 ml 480 ml Assessment & Plan Problem List: (1) Unspecified psychosis Assessment & Plan: Patient continues to be in a state of agitation, restlessness, hyperactivity, disorganized behavior and thought, pressured speech , internal stimulation,impaired contact with reality. Patient has needed additional IM medication in order to calm him down. We will increase risperidone to 2 mg twice a day, will add Depakote 250 mg for mood dysregulation and aggressive behavior ICD Code: F29 Assessment & Plan Estimated LOS: days Justification for Cont. Inpt. Patient is acutely psychotic/manic and is to continue inpatient hospitalization for stabilization. Lobo Vázquez MD February 08, 2017 14:09
[2017-02-08] MEDS: VALPROIC ACID 250 MG CAP PO SCH ×2 (14:15→21:33)
--- NOTE | 2017-02-08 19:09 | HHI.PR ---
Subjective Remarks Follow up on patient with HTN, CAD s/p [place] and cardiac stent implants, CHF and chronic low back pain. Patient seen and examined today. Patient given Ativan, Haldol and Thorazine prior to visit. Patient extremely sedated. Objective Vitals Vital Signs Date Time Temp Pulse Resp B/P Pulse Ox O2 Delivery O2 Flow Rate FiO2 02/08/17 06:00 97.4 80 20 151/78 100 I/O 02/07/17 02/07/17 02/07/17 02/08/17 02/08/17 02/08/17 07:00 15:00 23:00 07:00 15:00 23:00 Intake Total 360 ml 960 ml 480 ml 0 ml Balance 360 ml 960 ml 480 ml 0 ml Intake Oral 360 ml 960 ml 480 ml 0 ml # Voids 3 Result Diagram: 02/05/17 0520 02/05/17 05 Imaging Last Impressions Head CT 02/06/17 1134 Signed Impressions: Service Date/Time: Monday, February 06, 2017 12:16 - CONCLUSION: Normal examination. Dominik Coleman MD Objective Remarks GENERAL: This is a well-nourished, well-developed patient, in no apparent distress. Sedated. SKIN: No rashes, ecchymoses or lesions. Cool and dry. HEAD: Atraumatic. Normocephalic. CARDIOVASCULAR: Regular rate and rhythm without murmurs, gallops, or rubs. RESPIRATORY: Clear to auscultation. Breath sounds equal bilaterally. No wheezes , rales, or rhonchi. GASTROINTESTINAL: Abdomen soft, non-tender, nondistended. No hepato-splenomegaly , or palpable masses. No guarding. MUSCULOSKELETAL: Extremities without clubbing, cyanosis, or edema. No joint tenderness, effusion, or edema noted. No calf tenderness. NEUROLOGICAL: Sedated. Able to move all extremities. No focal neurologic findings appreciated. Medications and IVs Current Medications Medications (Trade) Dose Ordered Sig/Angelito Route Start Time Stop Time Status Last Admin (Ativan) 1 mg Q4H PRN PO 02/06/17 11:30 (Ativan Inj) 1 mg Q4H PRN IV PUSH 02/06/17 11:30 02/07/17 23:19 (Ativan) 2 mg Q2H PRN PO 02/06/17 11:30 (Ativan Inj) 2 mg Q2H PRN IV PUSH 02/06/17 11:30 (Ativan Inj) 2 mg Q1H PRN IV PUSH 02/06/17 11:30 (Ativan Inj) 2 mg Q15M PRN IV PUSH 02/06/17 11:30 02/08/17 09:35 (Haldol Inj) 2 mg Q15M PRN IM 02/06/17 11:30 02/08/17 09:34 (Romazicon Inj) 0.2 mg Q1M PRN IV PUSH 02/06/17 11:30 (risperDAL) 2 mg Q12HR PO 02/08/17 21:00 (Depakene) 250 mg Q12HR PO 02/08/17 14:15 A/P Assessment and Plan 61 yo male with PMHX of HTN, CAD s/p [place] and cardiac stent implants, CHF and chronic low back pain who was admitted to psychiatric unit under [place] with psychosis having hallucinations and having a sledgehammer in his hand. Hospitalist services consulted for medical management. Anxiety/psychosis Management per psychiatric team CT head, personally reviewed, negative examination Hypertension/CAD status post [place] and cardiac stent implants Aspirin daily continue home Metoprolol, Lisinopril, Isosorbide Monitor BP and adjust treatment as indicated Leukocytosis Likely reactive, stress related recheck labs to monitor trend Anemia, normocytic, normochromic Mild AM labs to monitor trend Hypokalemia potassium 3.4 give po repletion obtain labs to monitor response CHF Patient does not appear to be in acute exacerbation Monitor for signs of fluid overload Not on any antidiuretic medications per home med rec Echocardiogram shows EF 50-55%, mildly increased systolic pressure Recommend follow up with svp research and strategic analysis as outpatient Dyslipidemia Continue home atorvastatin Monitor fasting lipid panel results Chronic low back pain Confirmed on E forcse patient filled 120 Xanax 1 mg tablets and 120 Percocet 10/325mg on 01/15/17 DVT prophylaxis Encourage evaluation Madeleine Burgess February 08, 2017 19:08
[2017-02-08] MEDS: LORazepam 2 MG TAB PO PRN ×2 (21:33→23:39)
[2017-02-09 08:39] VITALS: BP 118/74; PULSE 115; RESP 26; O2SAT 98
[2017-02-09] MEDS: risperiDONE 1 MG TAB PO SCH ×2 (08:57→21:40)
[2017-02-09] MEDS: VALPROIC ACID 250 MG CAP PO SCH ×2 (08:57→21:40)
[2017-02-09 12:28] LABS: BASOPHIL # 0.1 TH/MM3 (0-0.2); BASOPHIL % 0.8 % (0.0-2.0); EOSINOPHIL # 0.1 TH/MM3 (0-0.4); EOSINOPHIL % 1.3 % (0.0-4.0); HEMATOCRIT 39.1 % (39.0-51.0); HEMO FLAGS DIFF FINAL; LYMPH % 21.4 % (9.0-44.0); LYMPHOCYTE # 1.9 TH/MM3 (1.0-4.8); MEAN CELL VOLUME 90.3 FL (80.0-100.0); MEAN CORPUSCULAR HEMOGLOBIN 30.2 PG (27.0-34.0); MEAN CORPUSCULAR HGB CONC 33.5 % (32.0-36.0); MONO % 8.6 % (0.0-8.0); NEUT % 67.9 % (16.0-70.0); PLATELET COUNT 231 TH/MM3 (150-450); RED BLOOD COUNT 4.33 MIL/MM3 (4.50-5.90); RED CELL DISTRIBUTION WIDTH 13.1 % (11.6-17.2); WHITE BLOOD COUNT 8.8 TH/MM3 (4.0-11.0)
[2017-02-09] MEDS: LORazepam 1 MG TAB PO PRN ×2 (13:00→18:47)
[2017-02-09 13:01] LABS: ALKALINE PHOSPHATASE 73 U/L (45-117); ALT (GPT) 29 U/L (12-78); ANION GAP 8 MEQ/L (5-15); AST (GOT) 39 U/L (15-37); BICARBONATE 31.2 MEQ/L (21.0-32.0); BLOOD UREA NITROGEN 19 MG/DL (7-18); CHLORIDE 105 MEQ/L (98-107); GLOMERULAR FILTRATION RATE 112 ML/MIN (>89); LDL CHOLESTEROL 38 MG/DL (0-99); MAGNESIUM 2.4 MG/DL (1.5-2.5); POTASSIUM 3.4 MEQ/L (3.5-5.1); SODIUM (NA) 144 MEQ/L (136-145); TOTAL BILIRUBIN ADULT 0.5 MG/DL (0.2-1.0)
--- NOTE | 2017-02-09 13:18 | HHI.PYPN ---
Subjective Remarks Patient continues to move slowly and slur his speech. However he is more alert and organized than he was. Review of Systems Except as stated in HPI: all other systems reviewed are Neg Objective Alert: Yes [place]: Person, Place, Date Mood: Other (restless) Affect: Other (labile) Memory Intact: Comment (not tested) Hallucinations: Auditory (responding to internal stimuli) Delusions: Yes Delusion Type: Paranoid Suicidal: Ideation (he denies) Homicidal: Ideation (he denies) Insight/Judgment Impaired Labs Test 02/09/17 11:11 White Blood Count 8.8 TH/MM3 Red Blood Count 4.33 MIL/MM3 Hemoglobin 13.1 GM/DL Hematocrit 39.1 % Mean Corpuscular Volume 90.3 FL Mean Corpuscular Hemoglobin 30.2 PG Mean Corpuscular Hemoglobin 33.5 % Concent Red Cell Distribution Width 13.1 % Platelet Count 231 TH/MM3 Mean Platelet Volume 8.3 FL Neutrophils (%) (Auto) 67.9 % Lymphocytes (%) (Auto) 21.4 % Monocytes (%) (Auto) 8.6 % Eosinophils (%) (Auto) 1.3 % Basophils (%) (Auto) 0.8 % Neutrophils # (Auto) 6.0 TH/MM3 Lymphocytes # (Auto) 1.9 TH/MM3 Monocytes # (Auto) 0.8 TH/MM3 Eosinophils # (Auto) 0.1 TH/MM3 Basophils # (Auto) 0.1 TH/MM3 CBC Comment DIFF FINAL Differential Comment Sodium Level 144 MEQ/L Potassium Level 3.4 MEQ/L Chloride Level 105 MEQ/L Carbon Dioxide Level 31.2 MEQ/L Anion Gap 8 MEQ/L Blood Urea Nitrogen 19 MG/DL Creatinine 0.71 MG/DL Estimat Glomerular Filtration 112 ML/MIN Rate Random Glucose 85 MG/DL Calcium Level 9.0 MG/DL Phosphorus Level 2.7 MG/DL Magnesium Level 2.4 MG/DL Total Bilirubin 0.5 MG/DL Aspartate Amino Transf 39 U/L (AST/SGOT) Alanine Aminotransferase 29 U/L (ALT/SGPT) Alkaline Phosphatase 73 U/L Total Protein 7.1 GM/DL Albumin 4.0 GM/DL Triglycerides Level 61 MG/DL Cholesterol Level 91 MG/DL LDL Cholesterol 38 MG/DL HDL Cholesterol 41.0 MG/DL Cholesterol/HDL Ratio 2.21 RATIO Thyroid Stimulating Hormone 0.427 uIU/ML 3rd Gen Vitals/IOs Vital Signs Date Time Temp Pulse Resp B/P Pulse Ox O2 Delivery O2 Flow Rate FiO2 02/09/17 08:39 115 26 118/74 98 02/08/17 06:00 97.4 02/06/17 15:30 Room Air Intake and Output 02/08/17 02/08/17 02/09/17 08:00 16:00 00:00 Intake Total 0 ml Balance 0 ml Assessment & Plan Problem List: (1) Unspecified psychosis ICD Code: F29 Assessment & Plan Estimated LOS: 5 days patient needs more time on medication to stabilize. Justification for Cont. Inpt. Likely to decompensate at lower level of care. Mina Pete MD February 09, 2017 13:18
[2017-02-09] MEDS ORDERED: POTASSIUM CHLORIDE 10 MEQ CONTROLLED RELEASE TAB PO ONE (14:00)
--- NOTE | 2017-02-09 14:22 | HHI.PR ---
Subjective Remarks Follow up on patient with HTN, CAD s/p NV and cardiac stent implants, CHF and chronic low back pain. Patient seen and examined today. Patient is awake and alert. Oriented to self and date/time. Denies any medical complaints at this time. Denies any shaking/tremors, diarrhea, visual or auditory hallucinations, SOB, chest pain or abdominal pain. Objective Vitals Vital Signs Date Time Temp Pulse Resp B/P Pulse Ox O2 Delivery O2 Flow Rate FiO2 02/09/17 08:39 115 26 118/74 98 I/O 02/08/17 02/08/17 02/08/17 02/09/17 02/09/17 02/09/17 07:00 15:00 23:00 07:00 15:00 23:00 Intake Total 0 ml 240 ml Balance 0 ml 240 ml Intake Oral 0 ml 240 ml # Voids 2 Result Diagram: 02/09/17 1111 02/09/17 1111 Imaging Last Impressions Head CT 02/06/17 1134 Signed Impressions: Service Date/Time: Monday, February 06, 2017 12:16 - CONCLUSION: Normal examination. Dominik Coleman MD Objective Remarks GENERAL: This is a well-nourished, well-developed patient, in no apparent distress. Alert and awake. Oriented x 2, not oriented to place. SKIN: No rashes, ecchymoses or lesions. Cool and dry. HEENT: Atraumatic. Normocephalic. EOMI. MMM. CARDIOVASCULAR: Tachycardiac. No murmurs, gallops, or rubs. RESPIRATORY: Clear to auscultation. Breath sounds equal bilaterally. No wheezes , rales, or rhonchi. GASTROINTESTINAL: Abdomen soft, non-tender, nondistended. No hepato-splenomegaly , or palpable masses. No guarding. MUSCULOSKELETAL: Extremities without clubbing, cyanosis, or edema. No joint tenderness, effusion, or edema noted. No calf tenderness. NEUROLOGICAL: Awake and alert. Able to move all extremities. No focal neurologic findings appreciated. Medications and IVs Current Medications Medications (Trade) Dose Ordered Sig/Angelito Route Start Time Stop Time Status Last Admin (Ativan) 1 mg Q4H PRN PO 02/06/17 11:30 02/09/17 13:00 (Ativan Inj) 1 mg Q4H PRN IV PUSH 02/06/17 11:30 02/07/17 23:19 (Ativan) 2 mg Q2H PRN PO 02/06/17 11:30 02/08/17 23:39 (Ativan Inj) 2 mg Q2H PRN IV PUSH 02/06/17 11:30 (Ativan Inj) 2 mg Q1H PRN IV PUSH 02/06/17 11:30 (Ativan Inj) 2 mg Q15M PRN IV PUSH 02/06/17 11:30 02/08/17 09:35 (Haldol Inj) 2 mg Q15M PRN IM 02/06/17 11:30 02/08/17 09:34 (Romazicon Inj) 0.2 mg Q1M PRN IV PUSH 02/06/17 11:30 (risperDAL) 2 mg Q12HR PO 02/08/17 21:00 02/09/17 08:57 (Depakene) 250 mg Q12HR PO 02/08/17 14:15 02/09/17 08:57 A/P Assessment and Plan 61 yo male with PMHX of HTN, CAD s/p NV and cardiac stent implants, CHF and chronic low back pain who was admitted to psychiatric unit under [place] with psychosis having hallucinations and having a sledgehammer in his hand. Hospitalist services consulted for medical management. 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 Management per psychiatric team CT head, personally reviewed, negative examination Hypertension/CAD status post NV and cardiac stent implants BP 118/74 Aspirin daily continue home Metoprolol, Lisinopril, Isosorbide Monitor BP and adjust treatment as indicated Tachycardiac no evidence of sepsis encourage fluids Baseline EKG ordered consider addition of BB continue to monitor Leukocytosis Likely reactive, stress related WBC 11.4 --> 8.8 resolved Anemia, normocytic, normochromic Mild hgb 12.6 --> 13.1 resolved Hypokalemia potassium 3.4 today, persistent give po repletion am labs to monitor response CHF Patient does not appear to be in acute exacerbation Monitor for signs of fluid overload Not on any antidiuretic medications per home med rec Echocardiogram shows EF 50-55%, mildly increased systolic pressure Recommend follow up with rigging and controls aircraft mechanic as outpatient Dyslipidemia Continue home atorvastatin Lipid panel shows good control Chronic low back pain Confirmed on E forcse patient filled 120 Xanax 1 mg tablets and 120 Percocet 10/325mg on 01/15/17 DVT prophylaxis Encourage ambulation Madeleine Burgess February 09, 2017 14:22
[2017-02-09 14:27] VITALS: BP 117/71; PULSE 144; O2SAT 100
[2017-02-09] MEDS ORDERED: METOPROLOL TARTRATE 25 MG TAB PO ONE (14:45)
[2017-02-09 15:59] VITALS: BP 107/54; PULSE 99; O2SAT 100
[2017-02-09 18:21] VITALS: BP 119/68; PULSE 93; O2SAT 100
[2017-02-09] MEDS: LORazepam 2 MG TAB PO PRN (22:48)
[2017-02-10 05:22] VITALS: BP 126/60; PULSE 66; RESP 18; TEMP 97.4; O2SAT 97
[2017-02-10] MEDS: VALPROIC ACID 250 MG CAP PO SCH ×2 (08:56→21:12)
[2017-02-10] MEDS: risperiDONE 1 MG TAB PO SCH ×2 (08:57→21:12)
[2017-02-10 11:41] LABS: BICARBONATE 30.8 MEQ/L (21.0-32.0); POTASSIUM 4.8 MEQ/L (3.5-5.1)
[2017-02-10 14:54] VITALS: BP 110/71; PULSE 128; RESP 18; TEMP 98.3; O2SAT 99
--- NOTE | 2017-02-10 15:28 | EKG ---
Date Performed: 02/09/2017 Time Performed: 14:50:53 PTAGE: 61 years EKG: Sinus rhythm NORMAL ECG NO PREVIOUS TRACING DOCTOR: Mina Romero Interpretating Date/Time 02/10/2017 15:27:34
--- NOTE | 2017-02-10 17:13 | HHI.PR ---
Subjective Remarks Follow-up visit HTN, CAD status post [place] and cardiac stent implants, CHF, chronic low back pain. Patient seen and examined today. Lying in bed. Awoken by verbal stimuli. States his doing okay. No acute complaints. As per staff, patient has heart rate 120s. Denies pain and discomfort. Denies SOB/ dyspnea. Denies chest pain, palpitations, headaches, dizziness. Denies fevers, chills, n/ v/d. Denies hematuria, dysuria. Objective Vitals Vital Signs Date Time Temp Pulse Resp B/P Pulse Ox O2 Delivery O2 Flow Rate FiO2 02/10/17 14:54 98.3 128 18 110/71 99 02/10/17 05:22 97.4 66 18 126/60 97 02/09/17 18:21 93 119/68 100 I/O 02/09/17 02/09/17 02/09/17 02/10/17 02/10/17 02/10/17 07:00 15:00 23:00 07:00 15:00 23:00 Intake Total 240 ml 480 ml 0 ml Balance 240 ml 480 ml 0 ml Intake Oral 240 ml 480 ml 0 ml # Voids 2 1 0 Result Diagram: 02/09/17 1111 02/10/17 1103 Imaging Last Impressions Head CT 02/06/17 1134 Signed Impressions: Service Date/Time: Monday, February 06, 2017 12:16 - CONCLUSION: Normal examination. Dominik Coleman MD Objective Remarks GENERAL: This is a thinly appearing, older than stated age patient, in no apparent distress. SKIN: Warm and dry. HEENT: Normocephalic. Pupils equal round and reactive. Nose without bleeding. Airway patent. NECK: Trachea midline. No JVD. Supple. CARDIOVASCULAR: Tachycardia without murmurs, gallops, or rubs. RESPIRATORY: Clear to auscultation. Breath sounds equal bilaterally. No wheezes , rales, or rhonchi. GASTROINTESTINAL: Abdomen soft, non-tender, nondistended. Bowel Sounds normoactive x4. : Voiding without difficulty. MUSCULOSKELETAL: Extremities without clubbing, cyanosis, or edema. NEUROLOGICAL: Awake, drowsy. Oriented to person, place. Moves all extremities. Normal speech. A/P Problem List: (1) Delirium ICD Code: R41.0 Status: Acute (2) Hallucinations ICD Code: R44.3 Status: Acute (3) HTN (hypertension) ICD Code: I10 Status: Chronic (4) Tachycardia ICD Code: R00.0 Status: Acute Assessment and Plan 61 yo male with PMHX of HTN, CAD s/p NC and cardiac stent implants, CHF and chronic low back pain who was admitted to psychiatric unit under [place] with psychosis having hallucinations and having a sledgehammer in his hand. Hospitalist services consulted for medical management. 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 Management per psychiatric team CT head, personally reviewed, negative examination Hypertension/CAD status post NC and cardiac stent implants BP 118/74 Aspirin daily continue home Metoprolol, Lisinopril, Isosorbide Monitor BP and adjust treatment as indicated Tachycardiac no evidence of sepsis encourage fluids Baseline EKG reviewed by me, sinus rhythm heart rate 99, no QT prolongation noted, no ST changes, normal EKG Possibly related to anxiety Check CK Start propanolol 20 mg twice a day, hold for heart rate less than 60 Leukocytosis Likely reactive, stress related WBC 11.4 --> 8.8 resolved Anemia, normocytic, normochromic Mild hgb 12.6 --> 13.1 resolved Hypokalemia Potassium replaced. Potassium 4.8 CHF, unspecified Patient does not appear to be in acute exacerbation Monitor for signs of fluid overload Not on any antidiuretic medications per home med rec Echocardiogram shows EF 50-55%, mildly increased systolic pressure Recommend follow up with tape maker as outpatient Dyslipidemia Continue home atorvastatin Lipid panel shows good control Chronic low back pain Confirmed on E forcse patient filled 120 Xanax 1 mg tablets and 120 Percocet 10/325mg on 01/15/17 Will not start any medication for now. Patient appears comfortable. Tylenol for pain. DVT prophylaxis Encourage ambulation Discussed with patient, nursing, Gilda Salazar February 10, 2017 17:13
[2017-02-10 18:20] VITALS: BP 110/71; PULSE 128; RESP 18; TEMP 98.3; O2SAT 99
--- NOTE | 2017-02-10 18:42 | HHI.PYPN ---
Subjective Remarks Continue to appear confused. Nursing staff says he is more oriented and goal directed. Review of Systems ROS Limitations: Psychotic Objective Alert: Yes [place]: Person, Place, Date Mood: Other (restless) Affect: Other (labile) Memory Intact: Comment (not tested) Hallucinations: Auditory (responding to internal stimuli) Delusions: Yes Delusion Type: Paranoid Suicidal: Ideation (he denies) Homicidal: Ideation (he denies) Insight/Judgment Impaired Labs Test 02/10/17 11:03 Sodium Level 141 MEQ/L Potassium Level 4.8 MEQ/L Chloride Level 105 MEQ/L Carbon Dioxide Level 30.8 MEQ/L Anion Gap 5 MEQ/L Blood Urea Nitrogen 14 MG/DL Creatinine 0.67 MG/DL Estimat Glomerular Filtration 120 ML/MIN Rate Random Glucose 92 MG/DL Calcium Level 9.1 MG/DL Vitals/IOs Vital Signs Date Time Temp Pulse Resp B/P Pulse Ox O2 Delivery O2 Flow Rate FiO2 02/10/17 18:20 98.3 128 18 110/71 99 02/06/17 15:30 Room Air Intake and Output 02/09/17 02/09/17 02/10/17 08:00 16:00 00:00 Intake Total 240 ml 480 ml Balance 240 ml 480 ml Assessment & Plan Problem List: (1) Unspecified psychosis ICD Code: F29 Assessment & Plan Estimated LOS: 7 days continue antipsychotic therapies. Justification for Cont. Inpt. Unable to care for self. Mina Pete MD February 10, 2017 18:42
[2017-02-10 20:22] LABS: CKMB 1.4 NG/ML (0.5-3.6)
[2017-02-10 20:47] VITALS: BP 137/70; PULSE 92; RESP 18; TEMP 97.7; O2SAT 99
[2017-02-10] MEDS: PROPRANOLOL HCL 20 MG TAB PO SCH (21:12)
[2017-02-10] MEDS ORDERED: ACETAMINOPHEN 500 MG CPLT PO PRN (21:30)
[2017-02-11 05:21] VITALS: BP 110/55; PULSE 80; RESP 18; TEMP 98; O2SAT 97
[2017-02-11] MEDS: PROPRANOLOL HCL 20 MG TAB PO SCH (08:36)
[2017-02-11] MEDS: risperiDONE 1 MG TAB PO SCH (08:36)
[2017-02-11] MEDS: VALPROIC ACID 250 MG CAP PO SCH (08:36)
[2017-02-11 10:06] VITALS: BP 115/66; PULSE 64; RESP 18; TEMP 97.8
[2017-02-11] MEDS ORDERED: risperiDONE PO (10:55)
[2017-02-11] MEDS ORDERED: PROP20TA3 PO (10:55)
--- NOTE | 2017-02-11 10:59 | HHI.DS ---
Psychiatry Discharge Summary Inpatient Psychiatric care?: Yes Advance Directive: No Reason Not Provided: Due to Patient Condition Mental Health AdvanceDirective: No Health Care Proxy: No Admission Admission Date February 06, 2017 at 12:49 Admission Diagnosis: (1) Unspecified psychosis ICD Code: F29 Brief History [address] Dr. Vázquez's H&P: The patient is a 61 years old man, domicile with his mother in [place], unemployed, supported by [facility], divorce, with psychiatric history of anxiety, no psychiatric hospitalizations, no previous suicidal attempts, he is on Xanax 1 mg 4 times per day, prescribed by PCP, he has medical history of CHF, hypertension, MIs, lower back pain. Patient was brought to the ER [place] As per police officers, patient suffers from anxiety and was found in his residence having hallucinations stating that there were several people in his sister's bedroom. Please officers made contact with him and he was in the hallway holding a sledgehammer. Patient had scripts filled on January 15, 2017 with 120 tablets of Xanax and 120 tabs of oxycodone which both bottles are empty.Patient reports that he was at her sister's home, reports that he heard voices from his systems room, which that he did become concerned and tried to investigate this. On psychiatric evaluation today patient is found very restless in his room, looking around, very paranoid, kind of disorganized and perseverant in the idea that he has to leave the hospital because his cats are in danger. Patient says that there are several dogs around his house trying to mess with his cats and he needs to call the police immediately. Patient also says that "all these people here also no that they're dogs around here, I just saw them in the door and any to call the police ". Patient was verbally be escalated, he continued to be very agitated and pacing in the room, looking around, trying to leave. As per nurses patient has been paranoid, refusing to eat his breakfast, very intrusive, becoming very often to the front of the nurses station to ask for the telephone number of the police department with different complaints. The patient denies depressive symptoms, he reports increasing anxiety, he denies perceptual disturbances. He reports daily use of Xanax, 4 mg per day, but he declares that sometimes he can go up to 10 pills per day. He denies a recent suicidal attempt. Patient denies the use of illegal drugs, and he denies the use of alcohol. Patient also takes Percocet for his lower back pain, he also declares that he sometimes over take this medication. During this evaluation no tremors, sweating or other signs of autonomic instability are noted. His vital signs are stable. However, benzodiazepines withdrawal is possible in this case. On my examination today: Patient seen and examined. Chart reviewed. Case discussed with nurse on the medical psychiatric unit. Per nursing staff, the patient became increasingly agitated this morning, raising his hand as if to hit staff and also trying to dismantle his bed and so he was placed into locked seclusion at Dr. Vázquez's order. At the time of my evaluation the patient remains in locked seclusion with a sitter at the door. Patient presents as behaviorally and cognitively disorganized. He is crouched in the corner of the seclusion room, laughing and talking to himself. He has emptied a coffee cream packet on the floor and is playing with the powder. His speech is almost entirely word salad. He is unable to answer any of my questions as a consequence of his disorganization, except he does say when asked that he is in [place]. Otherwise, patient' s current mental status considerably limits the history. He is for the same reason unable to provide me with any past psychiatric, family, chemical dependency or social history. Tobacco Use In Past 30 Days: 5 or More Cigarettes/Day Alcohol Use: Monthly or Less Hospital Course Pt treated with antipsychotics and benzodiazepines (Until 40 hrs ago.) Clear cognitively at time of discharge. No SI and No HI. No psychoses. No proccedures performed. Results Blood Pressure 115 / 66 Vital Signs Date Time Temp Pulse Resp B/P Pulse Ox O2 Delivery O2 Flow Rate FiO2 02/11/17 10:06 97.8 64 18 115/66 02/11/17 05:21 97 Laboratory Tests Test 02/09/17 02/10/17 11:11 11:03 Red Blood Count 4.33 MIL/MM3 (4.50-5.90) Monocytes (%) (Auto) 8.6 % (0.0-8.0) Potassium Level 3.4 MEQ/L (3.5-5.1) Blood Urea Nitrogen 19 MG/DL (7-18) Aspartate Amino Transf 39 U/L (15-37) (AST/SGOT) Cholesterol Level 91 MG/DL (120-200) Total Creatine Kinase 320 U/L (39-308) Laboratory Results Test 02/09/17 11:11 Triglycerides Level 61 MG/DL (42-150) Cholesterol Level 91 MG/DL (120-200) LDL Cholesterol 38 MG/DL (0-99) HDL Cholesterol 41.0 MG/DL (40.0-60.0) Summary of Procedures none Imaging Last Impressions Head CT 02/06/17 1134 Signed Impressions: Service Date/Time: Monday, February 06, 2017 12:16 - CONCLUSION: Normal examination. Dominik Coleman MD Pending results at discharge: No Medications # of Antipsychotic meds at D/C: 1 Appropriate >1 Antipsych meds?: 1 Approp Antipsych med options 1 - Minimum of three failed multiple trials of monotherapy. 2 - Documented plan to taper to monotherapy due to previous use of multiple meds OR cross-taper in progress at D/C. 3 - Documentation of augmentation of Clozapine. 4 - Justification other than those listed in allowable values 1-3, document here : Discharge Discharge Date: February 11, 2017 Discharge Diagnosis: (1) Unspecified psychosis Diagnosis: Principal ICD Code: F29 Mental Status Exam at Disch Cognition intact and pt. verbally contracts for safety. No si,hi or psychoses. Pt Condition on Discharge: Stable Discharge Disposition: Discharge Home Discharge Instructions Diet Instructions: As Tolerated, No Restrictions Activities you can perform: Regular-No Restrictions Discharge Time <= 30 minutes Discharge/Advance Care Plan Health Problems: (1) Unspecified psychosis Goals to promote your health * To prevent worsening of your condition and complications * To maintain your health at the optimal level Directions to meet your goals Take your medications as prescribed Follow your dietary instruction Follow activity as directed Keep your appointments as scheduled Take your immunizations and boosters as scheduled If your symptoms worsen call your PCP, if no PCP go to Urgent Care Center or Emergency Room For 08/04 questions related to your inpatient stay or results of tests pending at discharge, please contact Dr. Mina Pete at Smoking is Dangerous to Your Health. Avoid second hand smoking Mina Pete MD February 11, 2017 10:59
--- NOTE | 2017-02-11 13:08 | HHI.PR ---
Subjective Remarks Follow-up visit HTN, CAD status post [place] and cardiac stent implants, CHF, chronic low back pain, tachycardia. Patient seen and examined today. Reports he is doing better. Awake and alert, more coherent. Oriented to person, place. Denies pain and discomfort. Denies SOB/ dyspnea. Denies chest pain, palpitations, headaches, dizziness. Denies fevers, chills, n/v/d. Denies hematuria, dysuria. Objective Vitals Vital Signs Date Time Temp Pulse Resp B/P Pulse Ox O2 Delivery O2 Flow Rate FiO2 02/11/17 10:06 97.8 64 18 115/66 02/11/17 05:21 98.0 80 18 110/55 97 02/10/17 20:47 97.7 92 18 137/70 99 02/10/17 18:20 98.3 128 18 110/71 99 02/10/17 14:54 98.3 128 18 110/71 99 I/O 02/10/17 02/10/17 02/10/17 02/11/17 02/11/17 02/11/17 07:00 15:00 23:00 07:00 15:00 23:00 Intake Total 0 ml 290 ml Output Total 310 ml Balance 0 ml -20 ml Intake Oral 0 ml 290 ml Output Urine Total 310 ml # Voids 0 0 Result Diagram: 02/09/17 1111 02/10/17 1103 Imaging Last Impressions Head CT 02/06/17 1134 Signed Impressions: Service Date/Time: Monday, February 06, 2017 12:16 - CONCLUSION: Normal examination. Dominik Coleman MD Objective Remarks GENERAL: This is a thinly appearing, older than stated age patient, in no apparent distress. SKIN: Warm and dry. HEENT: Normocephalic. Pupils equal round and reactive. Nose without bleeding. Airway patent. NECK: Trachea midline. No JVD. Supple. CARDIOVASCULAR: Regular rate and rhythm without murmurs, gallops, or rubs. RESPIRATORY: Clear to auscultation. Breath sounds equal bilaterally. No wheezes , rales, or rhonchi. GASTROINTESTINAL: Abdomen soft, non-tender, nondistended. Bowel Sounds normoactive x4. : Voiding without difficulty. MUSCULOSKELETAL: Extremities without clubbing, cyanosis, or edema. NEUROLOGICAL: Awake, alert. Oriented to person, place. Moves all extremities. Normal speech. A/P Problem List: (1) Delirium ICD Code: R41.0 Status: Acute (2) Hallucinations ICD Code: R44.3 Status: Acute (3) HTN (hypertension) ICD Code: I10 Status: Chronic (4) Tachycardia ICD Code: R00.0 Status: Acute Assessment and Plan 61 yo male with PMHX of HTN, CAD s/p [place] and cardiac stent implants, CHF and chronic low back pain who was admitted to psychiatric unit under [place] with psychosis having hallucinations and having a sledgehammer in his hand. Hospitalist services consulted for medical management. 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 Controlled right now. Discussed with patient new dosage of medication and directions of taking it, S/E, Verbalized understanding. Leukocytosis Likely reactive, stress related WBC 11.4 --> 8.8 resolved Anemia, normocytic, normochromic Mild hgb 12.6 --> 13.1 resolved Hypokalemia Potassium replaced. Potassium 4.8 CHF, unspecified Patient does not appear to be in acute exacerbation Monitor for signs of fluid overload Not on any antidiuretic medications per home med rec Echocardiogram shows EF 50-55%, mildly increased systolic pressure Recommend follow up with patient case manager as outpatient Dyslipidemia Continue home atorvastatin Lipid panel shows good control Chronic low back pain Confirmed on E forcse patient filled 120 Xanax 1 mg tablets and 120 Percocet 10/325mg on 01/15/17 Will not start any medication for now. Patient appears comfortable. Tylenol for pain. DVT prophylaxis Encourage ambulation Discussed with patient, nursing, Dr. Dada Chan from Hospitalist standpoint. Hospitalist clear for discharge home. Follow-up with PCP Gilda Godinez February 11, 2017 13:08
[2017-02-11] MEDS ORDERED: METO50TA PO (13:11)
== END 2017-02-11 13:00 | disposition home or self-care (01) | DRG 885 ==
LOC: NEPE 04:46 → NEDA 02-06 12:49 → H4EA 02-06 17:20
PROVIDERS: ADMIT Psychiatry & Neurology Psychiatry; ATTEND Psychiatry & Neurology Psychiatry
DX: F29 Unspecified psychosis not due to a substance or known physiological condition (principal); I11.0 Hypertensive heart disease with heart failure; I50.9 Heart failure, unspecified; Z78.1 Physical restraint status; F22 Delusional disorders; F41.9 Anxiety disorder, unspecified; F17.210 Nicotine dependence, cigarettes, uncomplicated; I25.10 Atherosclerotic heart disease of native coronary artery without angina pectoris; Z95.5 Presence of coronary angioplasty implant and graft; G89.29 Other chronic pain; M54.5 Low back pain; E78.5 Hyperlipidemia, unspecified; D64.9 Anemia, unspecified; E87.6 Hypokalemia
CPT/HCPCS: 70450; 80048; 80053; 80061; 80307; 81001; 82550; 82552; 83735; 84100; 84443; 85025; 93005; 93306; 96372; J1630; J2060; J3230